=== PATIENT | female | born 1945 | race Caucasian/White ===

== ENCOUNTER 2017-05-24 16:31 | Emergency (ER) | payer BC ==
[2017-05-24] MEDS ORDERED: Adacel (T-DAP) 0.5 ML VIAL ONE (17:16)
[2017-05-24 17:31] LABS: #Eosinphils 0.1 thou/uL (0.0-0.7); #Lymphocytes 1.5 thou/uL (1.20-3.40); #Monocytes 0.6 thou/uL (0.11-0.59); #Neutrophils 3.9 thou/uL (1.40-6.50); %Basophils 0.7 % (0.0-1.0); %Eosinophils 0.9 % (0.0-10.0); %Monocytes 10.4 % (0.0-10.0); Hematocrit 35.6 % (36.0-47.0); Mean Platelet Volume 6.5 fL (7.4-10.4); Red Blood Cell (RBC) Count 3.96 mill/uL (4.20-5.40); White Blood Cell (WBC) Count 6.1 thou/uL (4.8-10.8)
--- NOTE | 2017-05-24 17:34 | RAD ---
THREE VIEWS LEFT HAND: 05/24/17 HISTORY: Finger puncture injury. Patient complains of left ring finger pain and swelling. Patient was cutting brush this morning around 0900 hours and injured left ring finger. FINDINGS: There is irregularity involving the distal aspect of the proximal phalanx of the thumb which may be related to a remote fracture. No additional fracture is seen, and there is no evidence of a dislocat ion. No radiopaque foreign body is seen. IMPRESSION: 1. No acute osseous abnormality. 2. No radiopaque foreign body seen. 3. Probable remote fracture proximal phalanx of the thumb. Clinical correlation for history of prior fracture is recommended. POS: [facility]
[2017-05-24 17:37] LABS: Prothrombin Time 12.4 SEC (12.0-14.7)
[2017-05-24 17:43] LABS: Anion Gap 11 mmol/L (10-20); BUN (Urea Nitrogen) 23 mg/dL (9.8-20.1); CK (CPK) 146 U/L (29-168); Calc. Creatinine Clearance 0 mL/min (70-130); Calcium 9.5 mg/dL (7.8-10.44); Carbon Dioxide 26 mmol/L (23-31); Chloride 107 mmol/L (98-107); Estimated GFR-MDRD 63
[2017-05-24 18:45] LABS: Bilirubin Negative (Negative); Blood, Urine Small (Negative); Glucose, Urine (Dipstick) Negative (Negative); Ketone, Urine Negative (Negative); Nitrite Negative (Negative); Protein, Urine (Dipstick) Negative (Neg-Trace); Urobilinogen 0.2 mg/dL (0.2-1.0)
[2017-05-24 18:55] LABS: RBC/HPF 0-3 HPF (0-3); Squamous Epithelial 0-3 HPF (0-3); WBC/HPF 0-3 HPF (0-3)
== END 2017-05-24 19:29 | disposition home or self-care (01) ==
LOC: SCSER 16:31
DX: S61.235A Puncture wound without foreign body of left ring finger without damage to nail, initial encounter (principal); Z85.3 Personal history of malignant neoplasm of breast; Z85.830 Personal history of malignant neoplasm of bone; Z92.21 Personal history of antineoplastic chemotherapy; Z92.3 Personal history of irradiation; Z79.899 Other long term (current) drug therapy; W26.9XXA Contact with unspecified sharp object(s), initial encounter
CPT/HCPCS: 36415; 80048; 81003; 81015; 82550; 85025; 85610; 85730; 90471; 90715

== ENCOUNTER 2017-06-06 08:04 | Outpatient (CLI) | payer BC ==
--- NOTE | 2017-06-06 12:36 | PET ---
PET CT FROM SKULL TO MID THIGH: Date: 06/06/17 INDICATION: History of right-sided breast cancer with osseous metastatic disease. COMPARISON: Prior PET CT dated 12/13/16, MRI lumbar spine dated 04/21/16, and CT of the chest/abdomen/pelvis kobe ed 08/18/14. TECHNIQUE: Multiple PET CT images were obtained from the skull base through the mid thighs following the introd uction of IV F18-FDG. A total of 13.92 mCi of F18-FDG IV was administered. CT images were obtained f or attenuation correction purposes only. FINDINGS: Biodistribution: The biodistribution for the examination appears acceptable. HEAD/NECK: No hypermetabolic lymphadenopathy or mass is identified. CHEST: No hypermetabolic pulmonary nodule or pleural effusion is demonstrated. There is postprocedure reynolds e of right breast mastectomy and right chest wall port placement. A small area of ground-glass opaci ty within the right lung apex is stable from 2014, likely reflecting sequelae of prior therapy. ABDOMEN/PELVIS: No hypermetabolic mass or lymphadenopathy is demonstrated. No hypermetabolic lymphadenopathy or mass is identified. SKIN/OSSEOUS STRUCTURES: No hypermetabolic skin or osseous lesion is identified. The sclerotic lesions involving the sacrum a nd thoracolumbar spine are stable in appearance consistent with treated metastatic disease. IMPRESSION: 1. No scintigraphic evidence to suggest recurrent metastatic disease. 2. Multiple sclerotic foci without hypermetabolic activity consistent with treated osseous metastat ic disease. POS: [facility]
== END 2017-06-06 08:05 | disposition home or self-care (01) ==
LOC: PET 08:04
PROVIDERS: ATTEND Internal Medicine Hematology & Oncology
DX: C50.919 Malignant neoplasm of unspecified site of unspecified female breast (principal); C79.51 Secondary malignant neoplasm of bone
CPT/HCPCS: 78815; A9552

== ENCOUNTER 2017-06-26 14:33 | Outpatient (CLI) | payer BC | END 2017-06-26 14:34 | disposition home or self-care (01) | LOC: ULT 14:33 | PROVIDERS: ATTEND Internal Medicine Hematology & Oncology | DX: C50.411 Malignant neoplasm of upper-outer quadrant of right female breast (principal); C79.51 Secondary malignant neoplasm of bone; I34.0 Nonrheumatic mitral (valve) insufficiency; I36.1 Nonrheumatic tricuspid (valve) insufficiency; Z79.899 Other long term (current) drug therapy | CPT/HCPCS: 93306 ==

== ENCOUNTER 2017-07-24 12:28 | Outpatient (CLI) | payer BC ==
--- NOTE | 2017-07-24 16:40 | NM ---
NUCLEAR MEDICINE MUGA SCAN: Date: 07/24/17 HISTORY: Right breast cancer, on chemotherapy. COMPARISON: 05/14/13. FINDINGS: A nuclear medicine MUGA scan was performed using 29 mCi technetium-99m tagged RBCs. FINDINGS: Phase and amplitude are normal in appearance. Patient's ejection fraction is 53.5%. IMPRESSION: Ejection fraction of 54%. POS: [facility]
== END 2017-07-24 12:29 | disposition home or self-care (01) ==
LOC: NM 12:28
PROVIDERS: ATTEND Internal Medicine Hematology & Oncology
DX: C50.919 Malignant neoplasm of unspecified site of unspecified female breast (principal)
CPT/HCPCS: 78472; A9604

== ENCOUNTER 2017-10-30 12:35 | Outpatient (CLI) | payer BC ==
--- NOTE | 2017-10-30 16:22 | NM ---
NUCLEAR MEDICINE MUGA SCAN: History: A 72-year-old female with breast cancer, on chemotherapy. Breast cancer is in the upper oute r aspect of the right breast. Technique: A Nuclear Medicine MUGA scan was performed using 30.2 mCi Technetium 99M tagged red blood cells. FINDINGS: Phase and amplitude are normal. Ejection fraction was estimated at 55%. IMPRESSION: Ejection fraction of 55%. POS: [facility]
== END 2017-10-30 12:36 | disposition home or self-care (01) ==
LOC: NM 12:35
PROVIDERS: ATTEND Internal Medicine Hematology & Oncology
DX: Z51.11 Encounter for antineoplastic chemotherapy (principal); C50.919 Malignant neoplasm of unspecified site of unspecified female breast
CPT/HCPCS: 78472; A9604

== ENCOUNTER 2017-11-02 07:47 | Outpatient (CLI) | payer BC ==
--- NOTE | 2017-11-03 08:40 | PET ---
PET SCAN WITH CT ATTENUATION CORRECTION: HISTORY: A 72-year-old female with metastatic breast cancer. Examination is requested for staging/restaging. The patient has undergone previous chemotherapy and external beam radiation therapy to the right lisa st wall. COMPARISON: 06/06/2017 and 12/13/2016 TECHNIQUE: PET scan with CT attenuation correction was performed from the base of the brain to the proximal thig hs, following the intravenous administration of 11.6 millicuries of F18 fluorodeoxyglucose. FINDINGS: HEAD/NECK: No abnormal FDG localization. FDG localization at the vocal cords is likely due to vocal cord movement. CHEST: No abnormal FDG localization. ABDOMEN/PELVIS: No abnormal FDG localization. OSSEOUS STRUCTURES: No abnormal FDG localization. CTs for attenuation correction demonstrate sclero tic foci without hypermetabolic activity. Treated osseous metastases are favored. IMPRESSION: No scintigraphic evidence of fluorodeoxyglucose avidity. POS: [facility]
== END 2017-11-02 07:48 | disposition home or self-care (01) ==
LOC: PET 07:47
PROVIDERS: ATTEND Internal Medicine Hematology & Oncology
DX: C50.411 Malignant neoplasm of upper-outer quadrant of right female breast (principal)
CPT/HCPCS: 78815; A9552

== ENCOUNTER 2018-01-22 13:32 | Outpatient (CLI) | payer BC ==
--- NOTE | 2018-01-22 16:03 | NM ---
MUGA SCAN: HISTORY: Breast cancer, for ejection fraction, and evaluate for chemo. Malignant neoplasm of upper outer quad rant of right breast. COMPARISON: 10/30/2017 RADIOPHARMACEUTICAL: Technetium 99m labeled RBCs, 30 millicuries, injected intravenously. FINDINGS: The left ventricular ejection fraction measures 55%, essentially unchanged compared to the previous s tudy of 10/30/2017. Left ventricular wall motion is normal. IMPRESSION: Left ventricular ejection fraction is 55%. POS: [facility]
== END 2018-01-22 13:33 | disposition home or self-care (01) ==
LOC: NM 13:32
PROVIDERS: ATTEND Internal Medicine Hematology & Oncology
DX: C50.919 Malignant neoplasm of unspecified site of unspecified female breast (principal)
CPT/HCPCS: 78472; A9604

== ENCOUNTER 2018-05-08 10:29 | Outpatient (CLI) | payer BC ==
--- NOTE | 2018-05-08 14:04 | NM ---
MUGA SCAN: Date: 05/08/18 HISTORY: Malignant neoplasm of upper outer quadrant of right female breast, follow-up exam after treatment for malignant neoplasm. RADIOPHARMACEUTICAL: 27.6 mCi technetium-99m labeled RBCs were injected intravenously. COMPARISON: 01/22/18. FINDINGS: The left ventricular ejection fraction measures 46% (55% on 01/22/18). There is mild global hypokines is. IMPRESSION: LVEF is 46%. POS: [facility]
== END 2018-05-08 10:30 | disposition home or self-care (01) ==
LOC: NM 10:29
PROVIDERS: ATTEND Internal Medicine Hematology & Oncology
DX: C50.919 Malignant neoplasm of unspecified site of unspecified female breast (principal)
CPT/HCPCS: 78472; A9604

== ENCOUNTER 2018-05-24 08:11 | Outpatient (CLI) | payer BC ==
--- NOTE | 2018-05-24 12:08 | PET ---
PET CT FROM SKULL BASE THROUGH MID THIGHS: INDICATION: History of right-sided breast cancer with metastatic disease. COMPARISON: Prior PET CT evaluation from [facility] dated 11/02/17. RADIOPHARMACEUTICAL: 10.2 mCi F18-FDG IV. TECHNIQUE: PET CT images were obtained from the skull base through the mid thighs following IV administration of the radiopharmaceutical. The CT images were obtained for attenuation correction purposes only. FINDINGS: The biodistribution for the examination appears acceptable. Head/Neck: No hypermetabolic lymphadenopathy or mass identified. There is some background activity seen within t he skeletal musculature of the neck, likely related to muscular contraction. Thorax: No hypermetabolic pulmonary nodule. Pleural effusion is present. There is stable pleural parenchymal scarring involving the right lung apex. No hypermetabolic lymphadenopathy is evident. There is no hypermetabolic activity seen within the rig ht mastectomy bed. No abnormal axillary lymphadenopathy is noted. There is a right chest wall port in place. Abdomen/Pelvis: No hypermetabolic lymphadenopathy or mass identified. No hypermetabolic ascites is present. Skin/Osseous Structures: No hypermetabolic skin or osseous lesion present. There are scattered areas of sclerosis involving le sions of the sacrum and thoracolumbar spine, consistent with treated metastatic disease. No new metas tatic focus is evident. IMPRESSION: Findings consistent with response to therapy. No new hypermetabolic metastatic disease or recurrent d isease demonstrated. POS: [facility]
== END 2018-05-24 08:12 | disposition home or self-care (01) ==
LOC: PET 08:11
PROVIDERS: ATTEND Internal Medicine Hematology & Oncology
DX: C79.51 Secondary malignant neoplasm of bone (principal); C50.919 Malignant neoplasm of unspecified site of unspecified female breast
CPT/HCPCS: 78815; A9552

== ENCOUNTER 2018-05-28 11:36 | Outpatient (CLI) | payer BC ==
--- NOTE | 2018-05-28 14:04 | RAD ---
PA AND LATERAL CHEST: Date: 05/28/18 HISTORY: Breast cancer. FINDINGS: Heart size within normal limits. Atherosclerotic changes of aorta. Right-sided MediPort catheter is p resent. No pulmonary nodules identified. Bones appear demineralized. IMPRESSION: No active intrathoracic disease. POS: [facility]
== END 2018-05-28 11:37 | disposition home or self-care (01) ==
LOC: BICRAD 11:36
PROVIDERS: ATTEND Internal Medicine Hematology & Oncology
DX: C50.411 Malignant neoplasm of upper-outer quadrant of right female breast (principal); C79.51 Secondary malignant neoplasm of bone
CPT/HCPCS: 71046

== ENCOUNTER 2018-06-26 12:43 | Outpatient (CLI) | payer BC ==
--- NOTE | 2018-06-26 16:07 | NM ---
NUCLEAR MEDICINE MUGA SCAN: 06/26/18 Malignant neoplasm. Patient is on chemotherapy but was stopped after the prior MUGA scan. COMPARISON: 05/08/18. FINDINGS: A nuclear medicine MUGA scan was performed after the administration of 27 millicuries of technetium 9 9m tagged red blood cells. FINDINGS: Phase and amplitude are normal. Ejection fraction is estimated at 58%. IMPRESSION: Significant improvement in ejection fraction with current ejection fraction at 58%. POS: [facility]
== END 2018-06-26 12:44 | disposition home or self-care (01) ==
LOC: NM 12:43
PROVIDERS: ATTEND Internal Medicine Hematology & Oncology
DX: C50.411 Malignant neoplasm of upper-outer quadrant of right female breast (principal)
CPT/HCPCS: 78472; A9604

== ENCOUNTER 2018-08-27 12:42 | Outpatient (CLI) | payer BC ==
--- NOTE | 2018-08-27 16:05 | NM ---
NUCLEAR MEDICINE MUGA SCAN: INDICATIONS: Encounter for follow-up examination after completed treatment of malignant neoplasm. RADIOPHARMACEUTICAL: Technetium 99m tagged red blood cells 27 millicuries IV. FINDINGS: Gated imaging of the heart, subsequent to IV administration of tagged red cells, reveals a calculated LVEF of 54.7. This is compared to 57.9 on the 06/26/2018 exam. IMPRESSION: Slight interval decrease with regard to left ventricular ejection fraction, currently 54%. POS: [facility]
== END 2018-08-27 12:43 | disposition home or self-care (01) ==
LOC: NM 12:42
PROVIDERS: ATTEND Internal Medicine Hematology & Oncology
DX: Z08 Encounter for follow-up examination after completed treatment for malignant neoplasm (principal); Z85.3 Personal history of malignant neoplasm of breast
CPT/HCPCS: 78472; A9604

== ENCOUNTER 2018-12-03 12:41 | Outpatient (CLI) | payer BC ==
--- NOTE | 2018-12-03 14:43 | NM ---
MUGA SCAN: DATE: 12/03/18 HISTORY: Breast cancer, encounter for follow-up examination after completion of treatment for malignant neopla sm. RADIOPHARMACEUTICAL: 30.3 mCi technetium-99m labeled RBCs injected intravenously. FINDINGS: The left ventricular ejection fraction measures 53% (previously 55% on 08/27/18). Wall motion is norm al. IMPRESSION: LVEF is 53%. POS: [facility]
== END 2018-12-03 12:42 | disposition home or self-care (01) ==
LOC: NM 12:41
PROVIDERS: ATTEND Internal Medicine Hematology & Oncology
DX: C50.411 Malignant neoplasm of upper-outer quadrant of right female breast (principal); C79.51 Secondary malignant neoplasm of bone
CPT/HCPCS: 78472; A9604

== ENCOUNTER 2018-12-11 11:29 | Outpatient (CLI) | payer BC ==
--- NOTE | 2018-12-11 13:02 | PET ---
EXAM: PET/CT HISTORY: Breast cancer with osseous metastatic disease TECHNIQUE: PET scanning with CT attenuation correction was performed from the base of the brain to the proximal thighs following the intravenous administration of 13.2 millicuries [id number]. COMPARISON: PET/CT dated May 24, 2018. CORRELATION: None FINDINGS: Bilateral distribution:The biodistribution for the exam appears acceptable. Head and neck: There is appropriate background activity within the brain. No hypermetabolic lymphaden opathy or masses identified. Mild increased metabolic activity seen at the level of the course likely related to phonation. Thorax: No hypermetabolic pulmonary lesion, pleural effusion or lymphadenopathy is present. There is stable pleural-parenchymal scarring involving the right lung apex. Abdomen and pelvis: There is expected background activity within the GI and systems. No hypermetab olic mass, lymphadenopathy or ascites is present. Osseous structures and skin: No hypermetabolic skin or osseous lesion is identified. There are stable scattered sclerotic lesions involving the axial skeleton. IMPRESSION: Stable PET/CT examination. There are stable scattered sclerotic lesions involving the axial skeleton consistent with treated osseous metastatic disease. No new hypermetabolic regional or metastatic disease demonstrated.
== END 2018-12-11 11:30 | disposition home or self-care (01) ==
LOC: PET 11:29
PROVIDERS: ATTEND Internal Medicine Hematology & Oncology
DX: C50.411 Malignant neoplasm of upper-outer quadrant of right female breast (principal); C79.51 Secondary malignant neoplasm of bone
CPT/HCPCS: 78815; A9552

== ENCOUNTER 2019-02-22 08:31 | Outpatient (CLI) | payer BC ==
--- NOTE | 2019-02-22 11:17 | NM ---
MUGA SCAN: HISTORY: Malignant neoplasm of the upper outer quadrant of the right female breast, encounter for fol low-up examination after completion of treatment for malignant neoplasm. RADIOPHARMACEUTICAL: 27 mCi technetium 99m labeled RBCs injected intravenously. Comparison: 12/03/2018 FINDINGS: The left ventricular ejection fraction measures 52%. Previous measurement was 53%. Wall motion is normal. IMPRESSION: LVEF is 52%.
== END 2019-02-22 08:32 | disposition home or self-care (01) ==
LOC: NM 08:31
PROVIDERS: ATTEND Internal Medicine Hematology & Oncology
DX: C50.411 Malignant neoplasm of upper-outer quadrant of right female breast (principal); C79.51 Secondary malignant neoplasm of bone
CPT/HCPCS: 78472; A9604

== ENCOUNTER 2019-05-23 08:24 | Outpatient (CLI) | payer BC ==
--- NOTE | 2019-05-23 10:22 | PET ---
Exam: PET CT skull to mid thigh COMPARISON: PET CT 12/11/2018 HISTORY: Malignant neoplasm upper outer quadrant right breast TECHNIQUE: A PET/CT was performed from the skull to the mid thigh after administration of 10.6 millic uries of F-18 FDG. Evaluation was performed on a [employer] workstation. FINDINGS: NECK: No areas of hypermetabolic activity CHEST: No areas of hypermetabolic activity. Stable focal patchy groundglass opacity at the right lung apex. ABDOMEN/PELVIS: No areas of hypermetabolic activity SKELETON: Numerous sclerotic osseous lesions are redemonstrated. No new hypermetabolic activity, graciela cative of treated osseous metastases. IMPRESSION: No scintigraphic evidence of hypermetabolic disease. Redemonstration of treated osseous metastases.
== END 2019-05-23 08:25 | disposition home or self-care (01) ==
LOC: PET 08:24
PROVIDERS: ATTEND Internal Medicine Hematology & Oncology
DX: C50.411 Malignant neoplasm of upper-outer quadrant of right female breast (principal); C79.51 Secondary malignant neoplasm of bone
CPT/HCPCS: 78815; A9552

== ENCOUNTER 2019-05-27 12:34 | Outpatient (CLI) | payer BC ==
[2019-05-27] MEDS ORDERED: Heparin 1,000 UNITS/ML VIAL ONE (15:00)
--- NOTE | 2019-05-27 18:01 | NM ---
MUGA SCAN: Date: 05/27/19 HISTORY: Encounter for follow-up examination after completion of chemotherapy. Malignant neoplasm of upper out er quadrant of right female breast. RADIOPHARMACEUTICAL: 27 mCi technetium-99m labeled RBCs injected intravenously. COMPARISON: 02/22/19. FINDINGS: The left ventricular ejection fraction measures 53%. Previous measurement was 52%. Wall motion exam is normal. IMPRESSION: LVEF 53%. POS: [facility]
== END 2019-05-27 12:35 | disposition home or self-care (01) ==
LOC: NM 12:34
PROVIDERS: ATTEND Internal Medicine Hematology & Oncology
DX: C50.411 Malignant neoplasm of upper-outer quadrant of right female breast (principal); C79.51 Secondary malignant neoplasm of bone
CPT/HCPCS: 78472; A9604; J1644

== ENCOUNTER 2019-09-04 10:24 | Outpatient (CLI) | payer BC ==
--- NOTE | 2019-09-04 12:16 | NM ---
EXAM: NM Muga Scan STANDARD PROVIDED CLINICAL HISTORY: Malignant neoplasm upper outer quadrant of right female breast. Follow-up evaluation after chemothera py. COMPARISON: 05/27/2019 FINDINGS: No definite wall motion abnormality is demonstrated. The left ventricular ejection fraction is 47.8%. Left ventricular ejection fraction on prior study was 53.3%. IMPRESSION: Left ventricular ejection fraction of 47.8% with prior ejection fraction of 53.3%
== END 2019-09-04 10:25 | disposition home or self-care (01) ==
LOC: NM 10:24
PROVIDERS: ATTEND Internal Medicine Hematology & Oncology
DX: C50.411 Malignant neoplasm of upper-outer quadrant of right female breast (principal); C79.51 Secondary malignant neoplasm of bone
CPT/HCPCS: 78472; A9604

== ENCOUNTER 2019-10-23 10:27 | Outpatient (CLI) | payer BC ==
--- NOTE | 2019-10-23 13:02 | NM ---
NUCLEAR MEDICINE MUGA SCAN: DATE: 10/23/2019. HISTORY: A 74-year-old female with malignant neoplasm of upper outer quadrant of right female breast. Chemoth erapy evaluation. TECHNIQUE: 28 mCi of Technetium 99m-tagged erythrocytes injected IVC. Multigated acquisition of heart obtained in short axis. FINDINGS: EF=52%. IMPRESSION: Left ventricular ejection fraction of 52%. POS: [facility]
[2019-10-23] MEDS ORDERED: Heparin 1,000 UNITS/ML VIAL ONE (14:17)
== END 2019-10-23 10:28 | disposition home or self-care (01) ==
LOC: NM 10:27
PROVIDERS: ATTEND Internal Medicine Hematology & Oncology
DX: Z51.11 Encounter for antineoplastic chemotherapy (principal); C50.411 Malignant neoplasm of upper-outer quadrant of right female breast; Z79.899 Other long term (current) drug therapy
CPT/HCPCS: 78472; A9604; J1644

== ENCOUNTER 2020-01-07 12:00 | Outpatient (CLI) | payer BC ==
--- NOTE | 2020-01-07 14:07 | PET ---
Radionucleotide PET scan with CT attenuation correction HISTORY: Malignant neoplasm upper outer quadrant right breast. Metastatic disease. Restaging. COMPARISON: 05/23/2019. FINDINGS: Physiologic uptake of radiotracer throughout the enteric system, along each urinary tract, and at the muscles of phonation. Vascular uptake noted at the right pectoralis major. No areas of pathologic uptake apparent. Right breast is surgically absent. Right-sided Mediport in place. Parenchymal scarring at the right lung apex is stable. Scattered areas of healed non-hypermetabolic s clerotic osseous lesions and partial compression of the L3 vertebral body are stable. IMPRESSION : No evidence of recurrent disease.
== END 2020-01-07 12:01 | disposition home or self-care (01) ==
LOC: PET 12:00
PROVIDERS: ATTEND Internal Medicine Hematology & Oncology
DX: C50.411 Malignant neoplasm of upper-outer quadrant of right female breast (principal); C79.51 Secondary malignant neoplasm of bone
CPT/HCPCS: 78815; A9552

== ENCOUNTER 2020-02-07 15:18 | Outpatient (CLI) | payer BC ==
--- NOTE | 2020-02-07 15:54 | RAD ---
Exam: Port check. Possible port malfunction and swelling. COMPARISON: None FINDINGS: Fluoroscopic imaging of the right hemithorax was performed. There is a right-sided Mediport catheter which has been cannulated with a Walker needle. Prior to injecting contrast, the thorax was evaluated under fluoroscopy. The tubing associated the Mediport catheter has broken off and migra cora proximally. The tubing projects over the right brachiocephalic vein down to the right atrium. IMPRESSION: Tubing associated with the Mediport catheter is broken off and migrated. Results study discussed with Dr. Claudio 02/07/2020 at 3:51 PM Code CR
== END 2020-02-07 15:19 | disposition home or self-care (01) ==
LOC: RAD 15:18
PROVIDERS: ATTEND Internal Medicine Hematology & Oncology
DX: Z45.2 Encounter for adjustment and management of vascular access device (principal); T82.598A Other mechanical complication of other cardiac and vascular devices and implants, initial encounter
CPT/HCPCS: 36598; J1642

== ENCOUNTER 2020-02-10 06:14 | Day surgery (SDC) | payer BC ==
--- NOTE | 2020-02-10 07:19 | CON ---
DATE OF CONSULTATION: HISTORY OF PRESENT ILLNESS: Ms. Varghese was in for chemotherapy on Monday. Her port was not functional. She went for port study and was found that the port tubing had from the port body and was lying in the superior vena cava/right atrium. I have been asked to see her to remove the port. PAST MEDICAL HISTORY: 1. Breast cancer. 2. Hypothyroidism. 3. Depressed ejection fraction that has slowly improved after institution of chemotherapy and resolution. CURRENT MEDICATIONS: 1. Levothyroxine 75 mcg daily. 2. Cozaar. ALLERGIES: NONE. SOCIAL HISTORY: She does not use tobacco. PHYSICAL EXAMINATION: GENERAL: This is a thin, very pleasant woman, resting comfortably in the pre-cath area. LUNGS: Clear bilaterally. Port is easily palpable on the chest wall laterally. EXTREMITIES: There is no edema. ASSESSMENT/PLAN: Discussed attempt at intravascular retrieval of the MediPort tubing through venous approach. We will lay plans as soon as laborer stores is available. Job ID: [id number]
[2020-02-10] MEDS ORDERED: Midazolam HCl 2 mg/2 ml Vial ONE ×2 (07:25→08:09)
[2020-02-10] MEDS ORDERED: Fentanyl 100 MCG/2 ML VIAL ONE (07:25)
[2020-02-10 07:53] LABS: #Eosinphils 0.1 thou/uL (0.0-0.7); #Lymphocytes 1.4 thou/uL (1.20-3.40); #Monocytes 0.6 thou/uL (0.11-0.59); #Neutrophils 2.7 thou/uL (1.40-6.50); %Basophils 0.7 % (0.0-1.0); %Lymphocytes 29.9 % (21.0-51.0); %Monocytes 12.3 % (0.0-10.0); %Neutrophils 55.1 % (42.0-75.0); Hemoglobin 12.8 g/dL (12.0-16.0); Mean Corpuscular HGB CONC 33.4 g/dL (32.0-36.0); Mean Corpuscular Hemoglobin 31.6 pg (27.0-31.0); Mean Corpuscular Volume 94.6 fL (78.0-98.0); Mean Platelet Volume 7.8 fL (7.4-10.4); Platelet Count 217 thou/uL (130-400); Red Blood Cell (RBC) Count 4.05 mill/uL (4.20-5.40); White Blood Cell (WBC) Count 4.8 thou/uL (4.8-10.8)
[2020-02-10 08:12] LABS: Anion Gap 9 mmol/L (10-20); BUN (Urea Nitrogen) 23 mg/dL (9.8-20.1); Calc. Creatinine Clearance 0 mL/min (70-130); Calcium 9.1 mg/dL (7.8-10.44); Carbon Dioxide 29 mmol/L (23-31); Chloride 103 mmol/L (98-107); Estimated GFR-MDRD 63; Glucose 94 mg/dL (83-110); Potassium 4.1 mmol/L (3.5-5.1); Sodium 137 mmol/L (136-145)
--- NOTE | 2020-02-10 10:15 | OP ---
DATE OF PROCEDURE: 02/10/2020 PREOPERATIVE DIAGNOSIS: Shear of the MediPort catheter from the MediPort with intra-atrial foreign body location. POSTOPERATIVE DIAGNOSIS: Shear of the MediPort catheter from the MediPort with intra-atrial foreign body location. PROCEDURES: 1. Removal of intra-atrial foreign body. 2. Removal of the MediPort. 3. US guided R femoral vein access 4. Placement of catheter in R atrium for foreign body removal ANESTHESIA: 1% lidocaine for local at both locations, 3 mg Versed, and 75 mcg of fentanyl. ESTIMATED BLOOD LOSS: Minimal. DRAINS: None. SPECIMENS: None. FLUOROSCOPY TIME: 32 minutes. DESCRIPTION OF PROCEDURE: The patient was brought to the refuse laborer and placed in supine position on the refuse laborer table. Appropriate monitoring was placed. IV sedation was begun. Groins and chest wall were prepped and draped in usual sterile fashion. Groin was anesthetized with 1% lidocaine. Using ultrasound guidance, the right common femoral vein was accessed and guidewire passed into the right atrium. Multiple sheaths shapes were used. Eventually, the Ramp 8.5 Yemeni sheath was placed into the right atrium and was used to provide appropriate support and access to the catheter tip. Catheter tip had rotated and was buried in the atrial trabeculae. Using the tip of the Ramp sheath, we flipped the catheter and we were then able to snare the catheter with the single loop snare. Once the catheter was snared, it was withdrawn from the groin. Manual pressure was held for hemostasis. The area over the MediPort was anesthetized with 1% lidocaine. Sharp dissection down to the MediPort itself was obtained and MediPort was removed sharply. On inspection of the MediPort, it appears that the catheter sheared from the MediPort. There was still a cuff of catheter attached to the MediPort itself. Wound was closed in layers and Dermabond applied to the skin. The patient was transferred to the PCU and will be discharged home later today. Job ID: [id number] [facility]
== END 2020-02-10 11:49 | disposition home or self-care (01) ==
LOC: CCL 06:14
PROVIDERS: ATTEND Thoracic Surgery (Cardiothoracic Vascular Surgery)
PROC: 02HV33Z Insertion of Infusion Device into Superior Vena Cava, Percutaneous Approach (ICD-10-PCS; principal; 2020-02-10)
DX: T82.9XXA Unspecified complication of cardiac and vascular prosthetic device, implant and graft, initial encounter (principal); C50.919 Malignant neoplasm of unspecified site of unspecified female breast; E03.9 Hypothyroidism, unspecified; Z79.899 Other long term (current) drug therapy
CPT/HCPCS: 36589; 75902; 80048; 85025; 99152; 99153; J0690; J1644; J2250; J3010

== ENCOUNTER 2020-07-14 12:00 | Outpatient (CLI) | payer BC, OTHER ==
--- NOTE | 2020-07-14 15:10 | PET ---
Nuclear medicine FDG PET/CT: (Positron emission tomography and computed tomography) DATE: 07/14/2020 HISTORY: 75-year-old female with malignant neoplasm of upper outer quadrant of right female breast with second channing malignant neoplasm of bone. Evaluate response to treatment. COMPARISON: 01/07/2020 TECHNIQUE: IV injection of F-18 fluorodeoxyglucose (FDG) dose: 12.0 mCi. PET scan and attenuation correction CT performed from skull base to proximal thighs. FINDINGS: SUV (standard uptake values) numbers given are maximum SUVs. QCLR used. There are no suspicious hypermetabolic soft tissue lesions in the neck, chest, abdomen, or pelvis. Multiple nonhypermetabolic sclerotic lesions of bone, including thoracic and lumbar spine, and sacrum , consistent with currently quiescent osteoblastic skeletal metastases, again noted. This includes pathologic compression fracture of L3 vertebral body. Right apical pulmonary scar again noted. No interval change overall. IMPRESSION: 1) no evidence of active metastatic disease. 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
== END 2020-07-14 12:01 | disposition home or self-care (01) ==
LOC: PET 12:00
PROVIDERS: ATTEND Internal Medicine Hematology & Oncology
DX: C50.919 Malignant neoplasm of unspecified site of unspecified female breast (principal); C79.51 Secondary malignant neoplasm of bone
CPT/HCPCS: 78815; A9552

== ENCOUNTER 2021-01-12 09:01 | Outpatient (CLI) | payer BC | END 2021-01-12 09:02 | disposition home or self-care (01) | LOC: PET 09:01 | PROVIDERS: ATTEND Internal Medicine Hematology & Oncology | DX: C50.411 Malignant neoplasm of upper-outer quadrant of right female breast (principal); C79.51 Secondary malignant neoplasm of bone | CPT/HCPCS: 78815; A9552 ==

== ENCOUNTER 2021-07-16 07:29 | Outpatient (CLI) | payer BC | END 2021-07-16 07:30 | disposition home or self-care (01) | LOC: PET 07:29 | PROVIDERS: ATTEND Internal Medicine Hematology & Oncology | DX: C50.411 Malignant neoplasm of upper-outer quadrant of right female breast (principal); C79.51 Secondary malignant neoplasm of bone | CPT/HCPCS: 78815; A9552 ==

== ENCOUNTER 2022-01-18 08:00 | Outpatient (CLI) | payer BC | END 2022-01-18 08:01 | disposition home or self-care (01) | LOC: PET 08:00 | PROVIDERS: ATTEND Internal Medicine Hematology & Oncology | DX: C79.51 Secondary malignant neoplasm of bone (principal); C50.411 Malignant neoplasm of upper-outer quadrant of right female breast | CPT/HCPCS: 78815; A9552 ==

== ENCOUNTER → 2022-07-19 | Outpatient (CLI) | payer BC | LOC: PET 08:00 | PROVIDERS: ATTEND Internal Medicine Hematology & Oncology | DX: C50.411 Malignant neoplasm of upper-outer quadrant of right female breast (principal); C79.51 Secondary malignant neoplasm of bone | CPT/HCPCS: 78815; A9552 ==

== ENCOUNTER → 2023-09-08 | Outpatient (CLI) | payer BC | LOC: PET 08:45 | PROVIDERS: ATTEND Internal Medicine Hematology & Oncology | DX: C50.411 Malignant neoplasm of upper-outer quadrant of right female breast (principal); C79.51 Secondary malignant neoplasm of bone | CPT/HCPCS: 78815; A9552 ==

== ENCOUNTER 2024-02-20 11:00 | Outpatient (CLI) | payer BC | END 2024-02-20 11:01 | disposition home or self-care (01) | LOC: PET 11:00 | PROVIDERS: ATTEND Internal Medicine Hematology & Oncology | DX: C50.411 Malignant neoplasm of upper-outer quadrant of right female breast (principal); C79.51 Secondary malignant neoplasm of bone | CPT/HCPCS: 78815; A9552 ==

== ENCOUNTER 2024-03-12 12:24 | Outpatient (CLI) | payer BC ==
[~2024-03-12 12:24] MED LIST: Magnevist 469MG/ML 20 ML VIAL ONE
== END 2024-03-12 12:25 | disposition home or self-care (01) ==
LOC: MRI 12:24
PROVIDERS: ATTEND Internal Medicine Hematology & Oncology
DX: M47.812 Spondylosis without myelopathy or radiculopathy, cervical region (principal); M47.816 Spondylosis without myelopathy or radiculopathy, lumbar region; R53.83 Other fatigue; C79.51 Secondary malignant neoplasm of bone
CPT/HCPCS: 72156; 72157; A9579

== ENCOUNTER 2024-08-26 08:45 | Outpatient (CLI) | payer BC | END 2024-08-26 08:46 | disposition home or self-care (01) | LOC: PET 08:45 | PROVIDERS: ATTEND Internal Medicine Hematology & Oncology | DX: C50.411 Malignant neoplasm of upper-outer quadrant of right female breast (principal); C79.51 Secondary malignant neoplasm of bone | CPT/HCPCS: 78815; A9552 ==